=== PATIENT | male | born 1980 | race Caucasian/White ===

== ENCOUNTER 2016-04-17 10:25 | Emergency (ER) | payer OTHER ==
[2016-04-17 10:45] VITALS: BP 123/51; PULSE 90; TEMP 98.5; BMI 31.3
[2016-04-17] MEDS ORDERED: LIDOCAINE HCL 1%, 10 MG/ML (20ML VIAL) ONE (11:26)
[2016-04-17] MEDS ORDERED: DIPHTH,PERTUSS(ACELL),TET 0.5 ML DISP.SYRIN IM ONE (11:37)
--- NOTE | 2016-04-17 11:41 | PDOC ---
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, and he sustained a laceration in his left forearm He denies any other injury, he denies any numbness or tingling in the hand, he denies any hand laceration He denies any other injury Past History - Past Medical History Allergies/Adverse Reactions: Allergies Allergy/AdvReac Type Severity Reaction Status Date / Time No Known Allergies Allergy Verified 04/17/16 10:36 Home Medications: Ambulatory Orders Amoxicillin/Potassium Clav [Augmentin 875-125 Tablet] 1 each PO BID 04/17/16 - Psycho/Social/Smoking Cessation Hx Anxiety: No Suicidal Ideation: No Smoking History: Current every day smoker Have you smoked in the past 12 months: No Number of Cigarettes Smoked Daily: 17 Information on smoking cessation initiated: Yes 'Breaking Loose' booklet given: 04/17/16 Hx Alcohol Use: No Drug/Substance Use Hx: No Substance Use Type: None *Physical Exam - Vital Signs Last Vital Signs Temp Pulse Resp BP Pulse Ox 98.5 F 90 16 123/51 98 04/17/16 10:36 04/17/16 10:36 04/17/16 10:36 04/17/16 10:36 04/17/16 10:36 - Physical Exam Comments: 04/17/16 11:39 Physical exam Last Vital Signs Temp Pulse Resp BP Pulse Ox 98.5 F 90 16 123/51 98 04/17/16 10:36 04/17/16 10:36 04/17/16 10:36 04/17/16 10:36 04/17/16 10:36 Patient is alert and ambulatory Head is normocephalic and atraumatic Left forearm On the left forearm there is a 4-5 cm laceration, half of which is deep into the subcutaneous fat The laceration is somewhat superficial All distal neurovascular is intact in the left hand All flexion and extension is intact in the left hand Fingers are warm with intact capillary refill Radial pulses intact No other lacerations are seen Medical Decision Making - Medical Decision Making 04/17/16 11:40 The wound is cleansed thoroughly, and explored The wound is into the subcutaneous fat, and there is no evidence of tendon or muscle involvement Laceration repair: The skin was prepped with betadine. 1% lidocaine with sodium bicarbonate was injected subcutaneously for local anesthesia. Normal saline lavage, high pressure, high volume was performed. The wound was again explored, there is no foreign body in the wound, and no evidence of laceration of tendon or muscle The wound is into the subcutaneous fat The wound is closed with good approximation with 4 - 0 Ethilon, simple interrupted sutures, x 9 were placed. Bacitracin and a dry sterile dressing were applied. Patient was advised regarding signs and symptoms of infection as well as instructions for suture removal. Boostrix was administered *DC/Admit/Observation/Transfer Diagnosis at time of Disposition: Laceration of forearm - Discharge Dispostion Disposition: HOME Condition at time of disposition: Good - Patient Instructions Printed Discharge Instructions: DI for Laceration Repair, Laceration Repair Additional Instructions: Keep the dressing clean, dry, and in place for 48 hours Then you may change the dressing, and put fresh Neosporin and a fresh bandage to the area twice a day Observe closely for signs of infection, which be redness or swelling, increasing pain, drainage, or any other concerns you may have Return for suture removal in 12 days-you may return here for suture removal, or your primary care doctor's office Return immediately if you worsen in any way Boostrix tetanus booster was administered today Followup with your primary care physician in 24-48 hours Return immediately if you worsen in any way - Post Discharge Activity Work/School Note: Back to Work
== END 2016-04-17 12:09 | disposition home or self-care (01) ==
LOC: FER 10:25
PROC: 3E0234Z Introduction of Serum, Toxoid and Vaccine into Muscle, Percutaneous Approach (ICD-10-PCS; principal; 2016-04-17)
PROC: 0HQEXZZ Repair Left Lower Arm Skin, External Approach (ICD-10-PCS; 2016-04-17)
DX: S51.812A Laceration without foreign body of left forearm, initial encounter (principal); W26.0XXA Contact with knife, initial encounter; Y93.89 Activity, other specified; Y92.9 Unspecified place or not applicable; Y99.0 Civilian activity done for income or pay; F17.210 Nicotine dependence, cigarettes, uncomplicated
CPT/HCPCS: 90715; 99282-25

== ENCOUNTER 2017-01-09 13:58 | Emergency (ER) | payer OTHER ==
[2017-01-09 14:02] VITALS: BP 133/93; PULSE 95; TEMP 98; BMI 31.6
[2017-01-09] MEDS ORDERED: ACETAMINOPHEN 325 MG TABLET (FP) PO ONE (14:24)
--- NOTE | 2017-01-09 14:24 | PDOC ---
History of Present Illness - General Chief Complaint: Laceration Stated Complaint: HEAD LAC Time Seen by Provider: 01/09/17 14:02 History Source: Patient Exam Limitations: No Limitations - History of Present Illness Initial Comments: 36 yo M no significant PMH presents with head injury. 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 Mild oozing of blood at the scene. He applied butterfly closures. He c/o mild localized pain, but no N/V, weakness, numbness, vision changes. No other injuries. Past History - Past Medical History Allergies/Adverse Reactions: Allergies Allergy/AdvReac Type Severity Reaction Status Date / Time No Known Allergies Allergy Verified 01/09/17 13:59 Home Medications: Ambulatory Orders NK [No Known Home Medication] 01/09/17 Other medical history: DENIES - Suicide/Smoking/Psychosocial Hx Smoking History: Current every day smoker Have you smoked in the past 12 months: No Number of Cigarettes Smoked Daily: 20 Information on smoking cessation initiated: Yes 'Breaking Loose' booklet given: 01/09/17 Hx Alcohol Use: Yes Drug/Substance Use Hx: No Substance Use Type: Alcohol Review of Systems - Review of Systems Able to Perform ROS?: Yes Comments:: GENERAL/CONSTITUTIONAL: No fever or chills. No weakness. HEAD, EYES, EARS, NOSE AND THROAT: No change in vision. No ear pain or discharge. No sore throat. MUSCULOSKELETAL: No joint or muscle swelling or pain. No neck or back pain. SKIN: No rash NEUROLOGIC: No headache, vertigo, loss of consciousness, or change in strength/ sensation. ENDOCRINE: No increased thirst. No abnormal weight change. HEMATOLOGIC/LYMPHATIC: No anemia, easy bleeding, or history of blood clots. ALLERGIC/IMMUNOLOGIC: No hives or skin allergy. *Physical Exam - Vital Signs Last Vital Signs Temp Pulse Resp BP Pulse Ox 98 F 95 H 18 133/93 100 01/09/17 13:58 01/09/17 13:58 01/09/17 13:58 01/09/17 13:58 01/09/17 13:58 - Physical Exam Comments: GENERAL: Awake, alert, and fully oriented, in no acute distress HEAD: +2.5 cm laceration to mid-forehead. Linear. Slight oozing of blood. Laceration is superficial. EYES: PERRLA, EOMI, sclera anicteric, conjunctiva clear ENT: Auricles normal inspection, hearing grossly normal, nares patent, oropharynx clear without exudates. Moist mucosa NECK: Normal ROM, supple, no lymphadenopathy, JVD, or masses EXTREMITIES: Normal range of motion, no edema. No clubbing or cyanosis. No cords , erythema, or tenderness NEUROLOGICAL: Cranial nerves II through XII grossly intact. Normal speech, normal gait SKIN: Warm, Dry, normal turgor, no rashes or lesions noted. Procedures - Laceration/Wound Repair Anterior Head Wound Length: to 2.5 cm Wound Explored: clean, no foreign body present Wound's Depth, Shape: superficial, linear Wound Repaired With: Dermabond *DC/Admit/Observation/Transfer Diagnosis at time of Disposition: Head injury Qualifiers: Encounter type: initial encounter Qualified Code(s): S09.90XA - Unspecified injury of head, initial encounter Laceration of forehead Qualifiers: Encounter type: initial encounter Qualified Code(s): S01.81XA - Laceration without foreign body of other part of head, initial encounter - Discharge Dispostion Disposition: HOME Condition at time of disposition: Stable Admit: No - Patient Instructions Printed Discharge Instructions: DI for Laceration Repair With Dermabond, DI for Closed Head Injury
[2017-01-09] MEDS ORDERED: ACETAMINOPHEN 325 MG TABLET (FP) ONE (14:27)
== END 2017-01-09 14:31 | disposition home or self-care (01) ==
LOC: FER 13:58
PROC: 0HQ0XZZ Repair Scalp Skin, External Approach (ICD-10-PCS; principal; 2017-01-09)
DX: S01.81XA Laceration without foreign body of other part of head, initial encounter (principal); S09.90XA Unspecified injury of head, initial encounter; F17.210 Nicotine dependence, cigarettes, uncomplicated; W22.01XA Walked into wall, initial encounter; Y93.89 Activity, other specified; Y92.89 Other specified places as the place of occurrence of the external cause; Y99.0 Civilian activity done for income or pay
CPT/HCPCS: 99282-25

== ENCOUNTER 2017-01-29 08:49 | Emergency (ER) | payer SELFPAY ==
[2017-01-29 09:09] VITALS: BP 133/83; PULSE 83; TEMP 98.5; BMI 31.6
--- NOTE | 2017-01-29 09:19 | PDOC ---
History of Present Illness - General Chief Complaint: Pain Stated Complaint: rt hand injury Time Seen by Provider: 01/29/17 09:11 - History of Present Illness Initial Comments: 01/29/17 09:22 Chief complaint: Right hand injury History of present illness: Patient complains of pain in the right hand over the fifth metacarpal after punching a wall in anger yesterday. There is no distal numbness tingling or weakness. The patient is left-handed for most activities, although he writes with his right hand. Review of systems: No other injuries. No numbness tingling weakness or limited motion as noted above. Past medical history: Healthy male, denies any significant past or present medical or surgical illnesses Social/family history reviewed and noncontributory Physical exam: Alert and oriented well-developed well-nourished no acute distress cooperative Afebrile, vital signs normal Right hand: There is mild swelling over the fifth metacarpal. No deformity. No erythema or warmth. Capillary refill intact to all 5 digits. Pulses full. No distal sensory deficits. No tendon dysfunction. There is no visible or palpable injury to the wrist. Impression: Rule out fifth metacarpal fracture Plan: X-ray and further orthopedic management depending on results. Past History - Past Medical History Allergies/Adverse Reactions: Allergies Allergy/AdvReac Type Severity Reaction Status Date / Time No Known Allergies Allergy Verified 01/29/17 09:02 Home Medications: Ambulatory Orders NK [No Known Home Medication] 01/09/17 Other medical history: denies - Suicide/Smoking/Psychosocial Hx Smoking History: Current every day smoker Have you smoked in the past 12 months: Yes Number of Cigarettes Smoked Daily: 15 Information on smoking cessation initiated: Yes 'Breaking Loose' booklet given: 01/29/17 Hx Alcohol Use: (occasional) Drug/Substance Use Hx: No Substance Use Type: Alcohol *Physical Exam - Vital Signs Last Vital Signs Temp Pulse Resp BP Pulse Ox 98.5 F 83 18 133/83 96 01/29/17 09:00 01/29/17 09:00 01/29/17 09:00 01/29/17 09:00 01/29/17 09:00 Medical Decision Making - Medical Decision Making 01/29/17 11:18 X-ray reviewed: There is a closed fracture of the fifth metacarpal shaft, comminuted, angulated approximately 20-30, but otherwise nondisplaced. Procedure note: Application of ulnar gutter splint Splint was applied to immobilize the fifth metacarpal. The patient was more comfortable after splint application. There was no distal numbness or tingling, good finger movement, and good capillary refill. Advised maintaining immobilization until further evaluation by crime specialist within [address] Mark. Off work until further orthopedic recommendation. Fully ambulatory and in no pain or other discomfort to follow up as recommended *DC/Admit/Observation/Transfer Diagnosis at time of Disposition: Fracture, metacarpal Qualifiers: Encounter type: initial encounter Metacarpal bone: fifth Fracture type: closed Metacarpal location: shaft Fracture alignment: nondisplaced Laterality: right Qualified Code(s): S62.356A - Nondisplaced fracture of shaft of fifth metacarpal bone, right hand, initial encounter for closed fracture - Discharge Dispostion Disposition: HOME Condition at time of disposition: Improved Admit: No - Referrals Referrals: Mckinley Mark MD [Staff Physician] - 1 week - Patient Instructions Printed Discharge Instructions: DI for a Hand Fracture, How to Take Care of Your Splint - Post Discharge Activity Forms/Work/School Notes: Back to Work
== END 2017-01-29 10:42 | disposition home or self-care (01) ==
LOC: FER 08:49
PROC: 2W3CX1Z Immobilization of Right Lower Arm using Splint (ICD-10-PCS; principal; 2017-01-29)
DX: S62.356A Nondisplaced fracture of shaft of fifth metacarpal bone, right hand, initial encounter for closed fracture (principal); W22.01XA Walked into wall, initial encounter; Y93.89 Activity, other specified; Y92.9 Unspecified place or not applicable; F17.210 Nicotine dependence, cigarettes, uncomplicated
CPT/HCPCS: 73130-TC-RT; 99283-25

== ENCOUNTER 2017-09-29 13:17 | Emergency (ER) | payer BC, OTHER ==
[2017-09-29 13:26] VITALS: TEMP 98.6; BMI 32.2
[2017-09-29] MEDS ORDERED: ASPIRIN 81 MG CHEWABLE TABLETS PO ONE (13:55)
[2017-09-29] MEDS ORDERED: ASPIRIN 81 MG CHEWABLE TABLETS ONE (14:00)
[2017-09-29 14:15] LABS: BASO % 0.6 % (0-2.0); EOS % 1.8 % (0-4.5); HEMATOCRIT 43.9 % (35.4-49); HEMOGLOBIN 14.7 GM/dl (11.7-16.9); LYMPH % 23.6 % (8-40); MCH 29.2 pg (25.7-33.7); MCHC 33.4 g/dl (32.0-35.9); MEAN CELL VOLUME 87.2 fl (80-96); MEAN PLT VOLUME 7.1 fl (7.5-11.1); MONO % 6.8 % (3.8-10.2); NEUT % 67.2 % (42.8-82.8); PLATELET COUNT 273 K/MM3 (134-434); RBC 5.03 M/mm3 (4.00-5.60); RDW 12.8 % (11.9-15.9); WHITE BLOOD COUNT 6.7 K/mm3 (4.0-10.8)
[2017-09-29 14:22] LABS: ALBUMIN 4.2 g/dl (3.5-5.0); ALK PHOS 57 U/L (32-92); ANION GAP 7 (8-16); BLOOD UREA NITROGEN 15 mg/dl (7-18); CALCIUM 8.8 mg/dl (8.4-10.2); CHLORIDE 104 mmol/L (98-107); CO2 24 mmol/L (22-28); GLUCOSE,RANDOM 104 mg/dl (74-106); MAGNESIUM 2.1 mg/dL (1.8-2.4); POTASSIUM 3.7 mmol/L (3.5-5.1); SGOT/AST 32 U/L (10-42); SGPT/ALT 37 U/L (10-40); SODIUM 135 mmol/L (136-145); TOT PROT 7.2 g/dl (6.4-8.3)
[2017-09-29 14:30] LABS: BILIRUBIN,TOTAL < 0.5 mg/dl (0.2-1.0)
--- NOTE | 2017-09-29 14:38 | PDOC ---
History of Present Illness - General History Source: Patient Exam Limitations: No Limitations - History of Present Illness Initial Comments: 09/29/17 14:47 The patient is a 37 year old male with no significant past medical history, other than pack per day cigarette smoking for 20 years, who presents to the emergency department for evaluation of chest pain. The patient reports moderate left sided chest pain, with no radiation beginning at 1030am. He reports associated symptoms of sweaty hands, palpitations, shortness of breath, along with chest pain he describes as a tightness, and states it felt like an anxiety attack which prompted to him to visit an urgent care for further evaluation. The patient reports being advised to visit [place] [facility] from urgent care today, after having an ECG taken with a concerning elevation. He reports taking aleve today at 11am with alleviation to the aforementioned symptoms. The patient reports moderate chest tightness yesterday at 10pm before bed and took motrin with mild alleviation. Of note, the patient admits to using cocaine on Thursday. The patient denies recent travel, immobilization, and history of PE or DVTs. The patient denies headache, dizziness, fever, chills, nausea, vomiting, and any bowel/urinary symptoms. Allergies: NKDA Social History: Current everyday smoker. Patient admits to once a month use of cocaine. Social alcohol consumption reported. Surgical History: Hydrocele <Donald Rubi - Last Filed: 09/29/17 14:47> <Orlin Goldstein - Last Filed: 09/29/17 14:58> - General Chief Complaint: Chest Pain Stated Complaint: CHEST PAIN Time Seen by Provider: 09/29/17 13:23 Past History <Donald Rubi - Last Filed: 09/29/17 14:47> - Past Medical History COPD: No Other medical history: PT DENIES - Suicide/Smoking/Psychosocial Hx Smoking History: Never smoked Have you smoked in the past 12 months: Yes Number of Cigarettes Smoked Daily: 20 Information on smoking cessation initiated: Yes 'Breaking Loose' booklet given: 09/29/17 Hx Alcohol Use: No Drug/Substance Use Hx: No Substance Use Type: Alcohol <Orlin Goldstein - Last Filed: 09/29/17 14:58> - Past Medical History Allergies/Adverse Reactions: Allergies Allergy/AdvReac Type Severity Reaction Status Date / Time No Known Allergies Allergy Verified 09/29/17 13:17 Home Medications: Ambulatory Orders NK [No Known Home Medication] 01/09/17 Review of Systems - Review of Systems Able to Perform ROS?: Yes <Donald Rubi - Last Filed: 09/29/17 14:47> - Review of Systems Constitutional: No: Chills, Fever, Night Sweats Respiratory: No: Cough, Orthopnea, Shortness of Breath, SOB with Exertion Cardiac (ROS): Yes: See HPI. No: Edema, Syncope ABD/GI: No: Nausea, Vomiting Neurological: No: Headache Psychiatric: Yes: Anxiety All Other Systems: Reviewed and Negative <Orlin Goldstein - Last Filed: 09/29/17 14:58> *Physical Exam - Vital Signs Last Vital Signs Temp Pulse Resp BP Pulse Ox 98.6 F 89 16 126/99 98 09/29/17 13:17 09/29/17 14:46 09/29/17 14:46 09/29/17 14:46 09/29/17 14:46 - Physical Exam Comments: GENERAL: The patient is awake, alert, and fully oriented, in no acute distress. HEAD: Normal with no signs of trauma. EYES: Pupils equal, round and reactive to light, extraocular movements intact, sclera anicteric, conjunctiva clear with no pallor. ENT: Ears normal, nares patent. NECK: Normal range of motion, supple. LUNGS: Breath sounds equal, clear to auscultation bilaterally. No wheeze/ crackles. HEART: Regular rate and rhythm, normal S1 and S2 without murmur or rub. ABDOMEN: Soft/nontender/nondistended. EXTREMITIES: Normal range of motion, no edema. No clubbing or cyanosis. No cords, erythema, or tenderness. NEUROLOGICAL: Cranial nerves II through XII grossly intact. Normal speech, normal gait. PSYCH: Normal mood, normal affect. SKIN: Warm, Dry, normal turgor, no rashes or lesions noted. <Donald Rubi - Last Filed: 09/29/17 14:47> - Vital Signs Last Vital Signs Temp Pulse Resp BP Pulse Ox 98.6 F 95 H 18 123/79 97 09/29/17 13:17 09/29/17 13:17 09/29/17 13:17 09/29/17 13:17 09/29/17 13:17 <Orlin Goldstein - Last Filed: 09/29/17 14:58> Heart Score/ECG Review - History History: Slightly suspicious - Electrocardiogram EKG: Normal - Age Age: </= 45 - Risk Factors Risk Factors Heart Score: Yes Smoking History Based on the list above the patient has:: 1-2 risk factors - Troponin Troponin: </= normal limit - Score Heart Score - Total: 1 #1 ECG reviewed & interpreted by me at: 13:25 General ECG Interpretation: Sinus Rhythm, Normal Rate (78), Normal Intervals ( qtc 392), No acute ischemic changes (isolated twi III) Compared to previous ECG there are: No significant change (from urgent care EKG at 1105) <Orlin Goldstein - Last Filed: 09/29/17 14:58> ED Treatment Course - LABORATORY CBC & Chemistry Diagram: 09/29/17 14:00 09/29/17 14:00 - ADDITIONAL ORDERS Additional order review: Laboratory Results 09/29/17 09/29/17 14:00 14:00 Sodium 135 L Potassium 3.7 Chloride 104 Carbon Dioxide 24 Anion Gap 7 L BUN 15 Creatinine 1.0 Creat Clearance w eGFR > 60 Random Glucose 104 Calcium 8.8 Magnesium 2.1 Total Bilirubin < 0.5 AST 32 ALT 37 Alkaline Phosphatase 57 Troponin I < 0.03 Total Protein 7.2 Albumin 4.2 09/29/17 14:00 RBC 5.03 MCV 87.2 MCHC 33.4 RDW 12.8 MPV 7.1 L Neutrophils % 67.2 Lymphocytes % 23.6 Monocytes % 6.8 Eosinophils % 1.8 Basophils % 0.6 - Medications Given in the ED: ED Medications Discontinued Medications Generic Name Dose Route Start Last Admin Trade Name Freq PRN Reason Stop Dose Admin Aspirin 162 mg 09/29/17 13:55 09/29/17 14:05 Asa - PO 09/29/17 13:56 162 mg ONCE ONE Administration <Donald Rubi - Last Filed: 09/29/17 14:47> - LABORATORY CBC & Chemistry Diagram: 09/29/17 14:00 09/29/17 14:00 - ADDITIONAL ORDERS Additional order review: Laboratory Results 09/29/17 09/29/17 14:00 14:00 Sodium 135 L Potassium 3.7 Chloride 104 Carbon Dioxide 24 Anion Gap 7 L BUN 15 Creatinine 1.0 Creat Clearance w eGFR > 60 Random Glucose 104 Calcium 8.8 Magnesium 2.1 Total Bilirubin < 0.5 AST 32 ALT 37 Alkaline Phosphatase 57 Troponin I < 0.03 Total Protein 7.2 Albumin 4.2 09/29/17 14:00 RBC 5.03 MCV 87.2 MCHC 33.4 RDW 12.8 MPV 7.1 L Neutrophils % 67.2 Lymphocytes % 23.6 Monocytes % 6.8 Eosinophils % 1.8 Basophils % 0.6 - RADIOLOGY Radiology Studies Ordered: Category Date Time Status CHEST PA & LAT [RAD] Stat Radiology 09/29/17 13:30 Ordered - Medications Given in the ED: ED Medications Discontinued Medications Generic Name Dose Route Start Last Admin Trade Name Eloy PRN Reason Stop Dose Admin Aspirin 162 mg 09/29/17 13:55 09/29/17 14:05 Asa - PO 09/29/17 13:56 162 mg ONCE ONE Administration <Orlin Goldstein - Last Filed: 09/29/17 14:58> Medical Decision Making - Medical Decision Making 09/29/17 14:32 37y/o M no sig pmh other than ppd smoker for 20 years and occasional cocaine use (last 4d ago) presents referred from urgent care with chest pain. Pt sxs began last night before going to bed, slight L sided ache/tightness without associated sxs of palp/sob/light headedness. Pt took ibuprofen and slept through the night without complaints. Awoke this morning feeling well, but after having a strong cup of coffee developed the same ache now associated with anxiety, hand sweating, palpitations. Presented to urgent care where EKG was performed and he was referred here. Currently asx, feels better regarding anxiety and chest pain. no h/o exertional cp or SOB. 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 no recent travel, no personal or fam hx of clotting disease. Vital signs are stable. Exam is normal. 37-year-old male with smoking history and occasional cocaine use presents with atypical chest pain intermittently since last night, now resolved. Last cocaine use was 4 days ago and the patient is not currently sympathomimetic, unlikely acute cocaine toxicity. His EKG and chest x-ray and lab tests including troponin are negative, reassuring greater than 12 hours after symptom onset. Overall atypical presentation for cardiac chest pain, question anxiety plus or minus GERD As etiology of symptoms. Patient is candidate for outpatient stress testing, will give PCP referral. Patient agrees with discharge plan, performed smoking and cocaine cessation discussions, understands return criteria. <Orlin Goldstein - Last Filed: 09/29/17 14:58> *DC/Admit/Observation/Transfer - Attestations Scribe Attestion: Documentation prepared by Doanld Rubi, acting as medical laboratory technicians for Orlin Goldstein MD. <Donald Rubi - Last Filed: 09/29/17 14:47> <Orlin Goldstein - Last Filed: 09/29/17 14:58> Diagnosis at time of Disposition: Precordial chest pain - Discharge Dispostion Disposition: HOME Condition at time of disposition: Improved - Referrals Referrals: Jimmie Prieto MD [Staff Physician] - - Patient Instructions Printed Discharge Instructions: DI for Atypical Chest Pain, DI for Anxiety -- Adult Additional Instructions: Activity as tolerated. Stay hydrated. An EKG, a chest x-ray, and a blood test showed no acute abnormalities. Continue any medications as previously prescribed by your physician. You should follow up with a primary doctor as soon as possible regarding today' s emergency department visit. Consider calling the [facility] [place] (Dr. Prieto ) for an appointment. An outpatient stress test may be needed to further evaluate your heart. Do your best to stop smoking and avoid stimulants. Return to the emergency department for any new or concerning symptoms, particularly persistent or worsening pain, difficulty breathing, cough or fevers or chills. - Post Discharge Activity Forms/Work/School Notes: Back to Work
[2017-09-29 14:46] VITALS: BP 126/99; PULSE 89
--- NOTE | 2017-09-29 15:13 | EKG ---
Test Reason : Blood Pressure : / mmHG Vent. Rate : 078 BPM Atrial Rate : 078 BPM P-R Int : 162 ms QRS Dur : 084 ms QT Int : 344 ms P-R-T Axes : 057 065 025 degrees QTc Int : 392 ms NORMAL SINUS RHYTHM WITH SINUS ARRHYTHMIA NORMAL ECG NO PREVIOUS ECGS AVAILABLE Confirmed by Adilson Poole ([id number]) on 09/29/2017 3:13:13 PM Referred By: ARIANE SOTO Confirmed By:Adilson Poole
== END 2017-09-29 15:00 | disposition home or self-care (01) ==
LOC: FER 13:17
DX: R07.2 Precordial pain (principal)
CPT/HCPCS: 36415; 71046-TC-FY; 80053; 83735; 84484; 85025; 93005; 99285-25